=== PATIENT | male | born 2000 | race Caucasian/White ===

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

== ENCOUNTER 2018-08-06 15:53 | Inpatient (IN) | payer MEDICAID ==
[~2018-08-06] VITALS: Ht 177.8 cm; Wt 62.0 kg
[2018-08-06] VITALS (8 sets, daily range): BP systolic 98–158; BP diastolic 43–84; BMI 18.6
--- NOTE | ~2018-08-06 | MORECARE ---
CASE MANAGEMENT DISCHARGE SUMMARY PATIENT: DARVIN WYLIE UNIT: [id number] ADM DATE: 08/06/18 AGE: 18 : [birth year] SEX: M ROOM/BED: D.2227 AUTHOR: YARITZA,DOC PHYSICIAN: REFERRING PHYSICIAN: ARGENIS KEITH MD DATE OF SERVICE: 08/10/18 Discharge Plan Patient Name: DARVIN WYLIE [facility] [facility] 2000 Planned Disposition: Home Anticipated Discharge Date: Discharge Date: 08/09/2018 Expected LOS: Initial Reviewer: [email or web address] Initial Review Date: 08/06/2018 Generated: 08/10/18 5:35 pm Comments DCP- Discharge Planning Updated by [email or web address]: June Malcolm on 08/09/18 3:[address] RESOURCES: [address] PHONE # [phone] PHONE # [phone] MED DATA- MEDICAID APPLICATION F/U- [facility] OUTSOURCED - [phone] DCP- Discharge Planning Updated by [email or web address]: June Malcolm on 08/09/18 1:[address] LATE ENTRY 1030 TC TO [employer] AND LEFT VM MESSAGE FOR TAWNYA REGARDING MEDICAID PENDING STATUS. AWAIT CB. MARK MET WITH THE PATIENT AT THE BEDSIDE THIS AM. HE LIVES WITH HIS MOTHER AND GIRLFRIEND AT MOTHER'S HOME. NO STAIRS TO ENTER THE HOME. 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 HE DOES NOT HAVE A PCP. PHARMACY -[facility] . HE HAD NOT BEEN HOSPITALIZED IN THE LAST 30 DAYS. HAS A GLUCOMETER AND STRIPS THAT WERE HIS GIRLFRIENDS MOTHER. NO OTHER DME. NO COMMUNITYN OR HOME HEALTH SERVICES. MARK DISCUSSED PATIENT FOLLOWING UP WITH [facility] FOR PCP LISTING. MARK SPOKE WITH TAWNYA IN [place] REGARDING MEDICAID. SHE STATES IT IS PENDING. THERE IS AN OPTION TO NOTE IF PATIENT UNABLE TO RECEIVE THE NECESSARY DOCUMENTATION FROM EMPLOYER. HIS APPLICATION IS IN PROGRESS. HE WILL BE PROVIDED WITH SOME OF THE INSULIN HE IS PRESENTLY UTILIZING. CM ADVISED CONTACT INFORMATION IS CORRECT FOR TAWNYA IN MED DATA. CM WILL PROVIDE CONTACT PHONE NUMBER FOR F/U WITH MED ASSIST, [facility] POLLOCK AND [facility]. CM AND PRIMARY NURSE, VIOLETTA , HAVE DISCUSSED THE CASE. SHE WILL ALSO PROVIDE SOME INSULIN SYRINGES PATIENT STATED HE HAD NONE. DCPIA - Discharge Planning Initial Assessment Updated by [email or web address]: June Malcolm on 08/09/18 1:49 pm * Is the patient Alert and Oriented? Yes * How many steps to enter\\exit or inside your home? NONE * PCP NO PCP. WILL BE LOOKING FOR NEW PCP * [facility]acy [facility] [address] * Preadmission Environment Home with Family * ADLs Independent * Equipment Glucometer * Other Equipment DENIES ANY ADDITIONAL DME * List name and contact numbers for known caregivers / representatives who currently or will assist patient after discharge: LULU WYLIE [phone] * Verbal permission to speak to the caregivers and representatives has been obtained from the patient. No * Community resources currently utilized None * Please name any agencies selected above. N/A * Additional services required to return to the preadmission environment? Yes * Can the patient safely return to the preadmission environment? Yes * Has this patient been hospitalized within the prior 30 days at any hospital? No Last DP export: 08/09/18 3:09 Patient Name: DARVIN WYLIE Page [id number] at 1635 All edits/amendments must be made on the electronic document DICTATION DATE: 08/10/18 163 BLOOD BANK CALENDAR CONTROL CLERK: PERI 08/10/18 1635 RPT#: [id number] DC DATE:08/09/18 STATUS: DIS IN [facility] [address] [place] [address] END OF REPORT
--- NOTE | ~2018-08-06 | MORECARE ---
CASE MANAGEMENT DISCHARGE SUMMARY PATIENT: DARVIN WYLIE UNIT: [id number] ADM DATE: 08/06/18 AGE: 18 : [birth year] SEX: M ROOM/BED: D.2227 AUTHOR: YARITZA,DOC PHYSICIAN: REFERRING PHYSICIAN: ARGENIS KEITH MD DATE OF SERVICE: 08/09/18 Discharge Plan Patient Name: DARVIN WYLIE Facility: [facility]:[place] : 2000 Planned Disposition: Home Anticipated Discharge Date: Discharge Date: Expected LOS: Initial Reviewer: [email or web address] Initial Review Date: 08/06/2018 Generated: 08/09/18 3:18 pm Comments DCP- Discharge Planning Updated by [email or web address]: June Malcolm on 08/09/18 1:[address] LATE ENTRY 1030 TC TO [employer] AND LEFT VM MESSAGE FOR TAWNYA REGARDING MEDICAID PENDING STATUS. AWAIT CB. MARK MET WITH THE PATIENT AT THE BEDSIDE THIS AM. HE LIVES WITH HIS MOTHER AND GIRLFRIEND AT MOTHER'S HOME. NO STAIRS TO ENTER THE HOME. 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 HE DOES NOT HAVE A PCP. PHARMACY -[facility] . HE HAD NOT BEEN HOSPITALIZED IN THE LAST 30 DAYS. HAS A GLUCOMETER AND STRIPS THAT WERE HIS GIRLFRIENDS MOTHER. NO OTHER DME. NO [facility] OR HOME HEALTH SERVICES. MARK DISCUSSED PATIENT FOLLOWING UP WITH [facility] FOR PCP LISTING. MARK SPOKE WITH TAWNYA IN [place] [employer] REGARDING MEDICAID. SHE STATES IT IS PENDING. THERE IS AN OPTION TO NOTE IF PATIENT UNABLE TO RECEIVE THE NECESSARY DOCUMENTATION FROM [employer]PL[employer]. HIS APPLICATION IS IN PROGRESS. HE WILL BE PROVIDED WITH SOME OF THE INSULIN HE IS PRESENTLY UTILIZING. CM ADVISED CONTACT INFORMATION IS CORRECT FOR TAWNYA IN [employer] [employer]. CM WILL PROVIDE CONTACT PHONE NUMBER FOR F/U WITH MED ASSIST, [facility] AND [facility]. MARK AND PRIMARY NURSE, VIOLETTA , HAVE DISCUSSED THE CASE. SHE WILL ALSO PROVIDE SOME INSULIN SYRINGES PATIENT STATED HE HAD NONE. DCPIA - Discharge Planning Initial Assessment Updated by [email or web address]: June Malcolm on 08/09/18 1:49 pm * Is the patient Alert and Oriented? Yes * How many steps to enter\\exit or inside your home? NONE * PCP NO PCP. WILL BE LOOKING FOR NEW PCP * [facility]acy [facility] [address] * Preadmission Environment Home with Family * ADLs Independent * Equipment Glucometer * Other Equipment DENIES ANY ADDITIONAL DME * List name and contact numbers for known caregivers / representatives who currently or will assist patient after discharge: LULU WYLIE [phone] * Verbal permission to speak to the caregivers and representatives has been obtained from the patient. No * Community resources currently utilized None * Please name any agencies selected above. N/A * Additional services required to return to the preadmission environment? Yes * Can the patient safely return to the preadmission environment? Yes * Has this patient been hospitalized within the prior 30 days at any hospital? No Last DP export: 08/09/18 12:53 Patient Name: DARVIN WYLIE Page [id number] at 1418 All edits/amendments must be made on the electronic document DICTATION DATE: 08/09/181416 INTERNATIONAL PROJECT MANAGER: PERI 08/09/181416 RPT#: [id number] DC DATE: STATUS: ADM IN [facility] [address] [place] [address] END OF REPORT
--- NOTE | ~2018-08-06 | MORECARE ---
CASE MANAGEMENT DISCHARGE SUMMARY PATIENT: DARVIN WYLIE UNIT: [id number] ADM DATE: 08/06/18 AGE: 18 : [birth year] SEX: M ROOM/BED: D.2227 AUTHOR: TESSA VIGIL PHYSICIAN: REFERRING PHYSICIAN: ARGENIS KEITH MD DATE OF SERVICE: 08/09/18 Discharge Plan Patient Name: DARVIN WYLIE [facility] [facility] 2000 Planned Disposition: Home Anticipated Discharge Date: Discharge Date: Expected LOS: Initial Reviewer: [email or web address] Initial Review Date: 08/06/2018 Generated: 08/09/18 2:53 pm DCPIA - Discharge Planning Initial Assessment Updated by [email or web address]: June Malcolm on 08/09/18 1:49 pm * Is the patient Alert and Oriented? Yes * How many steps to enter\exit or inside your home? NONE * PCP NO PCP. WILL BE LOOKING FOR NEW PCP * [facility] * Preadmission Environment Home with Family * ADLs Independent * Equipment Glucometer * Other Equipment DENIES ANY ADDITIONAL DME * List name and contact numbers for known caregivers / representatives who currently or will assist patient after discharge: LULU WYLIE [phone] * Verbal permission to speak to the caregivers and representatives has been obtained from the patient. No * Community resources currently utilized None * Please name any agencies selected above. N/A * Additional services required to return to the preadmission environment? Yes * Can the patient safely return to the preadmission environment? Yes * Has this patient been hospitalized within the prior 30 days at any hospital? No Last DP export: 08/09/18 12:46 Patient Name: DARVIN WYLIE Page 02145 at 1353 All edits/amendments must be made on the electronic document DICTATION DATE: 08/09/18 1353 LINING IRONER: PEIR 08/09/18 1353 RPT#: [id number] DC DATE: STATUS: ADM IN [facility] [address] [place] [address] END OF REPORT
--- NOTE | ~2018-08-06 | MORECARE ---
CASE MANAGEMENT DISCHARGE SUMMARY PATIENT: DARVIN WYLIE UNIT: [id number] ADM DATE: 08/06/18 AGE: 18 : [birth year] SEX: M ROOM/BED: D.2227 AUTHOR: YARITZA,DOC PHYSICIAN: REFERRING PHYSICIAN: ARGENIS KEITH MD DATE OF SERVICE: 08/09/18 Discharge Plan Patient Name: DARVIN WYLIE [facility] [facility] 2000 Planned Disposition: Home Anticipated Discharge Date: Discharge Date: Expected LOS: Initial Reviewer: [email or web address] Initial Review Date: 08/06/2018 Generated: 08/09/18 5:09 pm Comments DCP- Discharge Planning Updated by [email or web address]: June Malcolm on 08/09/18 3:[address] RESOURCES: [address] PHONE # [phone] PHONE # [phone] MED DATA- MEDICAID APPLICATION F/U- [facility] OUTSOURCED - [phone] DCP- Discharge Planning Updated by [id number]: June Malcolm on 08/09/18 1:[address] LATE ENTRY 1030 TC TO [employer] AND LEFT MESSAGE FOR TAWNYA REGARDING MEDICAID PENDING STATUS. AWAIT CB. MARK MET WITH THE PATIENT AT THE BEDSIDE THIS AM. HE LIVES WITH HIS MOTHER AND GIRLFRIEND AT MOTHER'S HOME. NO STAIRS TO ENTER THE HOME. 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 HE DOES NOT HAVE A PCP. PHARMACY -[facility] ON [facility] . HE HAD NOT BEEN HOSPITALIZED IN THE LAST 30 DAYS. HAS A GLUCOMETER AND STRIPS THAT WERE HIS GIRLFRIENDS MOTHER. NO OTHER DME. NO COMMUNITYN OR HOME HEALTH SERVICES. MARK DISCUSSED PATIENT FOLLOWING UP WITH [facility] FOR PCP LISTING. MARK SPOKE WITH TAWNYA IN [employer] REGARDING MEDICAID. SHE STATES IT IS PENDING. THERE IS AN OPTION TO NOTE IF PATIENT UNABLE TO RECEIVE THE NECESSARY DOCUMENTATION FROM EMPLOYER. HIS APPLICATION IS IN PROGRESS. HE WILL BE PROVIDED WITH SOME OF THE INSULIN HE IS PRESENTLY UTILIZING. CM ADVISED CONTACT INFORMATION IS CORRECT FOR TAWNYA IN MED DATA. CM WILL PROVIDE CONTACT PHONE NUMBER FOR F/U WITH MED ASSIST, [facility] AND [facility]. CM AND PRIMARY NURSE, VIOLETTA , HAVE DISCUSSED THE CASE. SHE WILL ALSO PROVIDE SOME INSULIN SYRINGES PATIENT STATED HE HAD NONE. DCPIA - Discharge Planning Initial Assessment Updated by [email or web address]: June Malcolm on 08/09/18 1:49 pm * Is the patient Alert and Oriented? Yes * How many steps to enter\\exit or inside your home? NONE * PCP NO PCP. WILL BE LOOKING FOR NEW PCP * [facility] [address] * Preadmission Environment Home with Family * ADLs Independent * Equipment Glucometer * Other Equipment DENIES ANY ADDITIONAL DME * List name and contact numbers for known caregivers / representatives who currently or will assist patient after discharge: LULU WYLIE [phone] * Verbal permission to speak to the caregivers and representatives has been obtained from the patient. No * Community resources currently utilized None * Please name any agencies selected above. N/A * Additional services required to return to the preadmission environment? Yes * Can the patient safely return to the preadmission environment? Yes * Has this patient been hospitalized within the prior 30 days at any hospital? No Last DP export: 08/09/18 1:18 Patient Name: DARVIN WYLIE Page [phone] at 1609 All edits/amendments must be made on the electronic document DICTATION DATE: 08/09/181607 EXERCISE EQUIPMENT REPAIR TECHNICIAN: PERI 08/09/181607 RPT#: [id number] DC DATE: STATUS: ADM IN [facility] [address] [place] [address] END OF REPORT
--- NOTE | ~2018-08-06 | MORECARE ---
CASE MANAGEMENT DISCHARGE SUMMARY PATIENT: DARVIN WYLIE UNIT: [id number] ADM DATE: 08/06/18 AGE: 18 : 98 SEX: M ROOM/BED: D.2227 AUTHOR: TESSA VIGIL PHYSICIAN: REFERRING PHYSICIAN: ARGENIS KEITH MD DATE OF SERVICE: 08/09/18 Discharge Plan Patient Name: DARVIN WYLIE [facility] [facility] 2000 Planned Disposition: Home Anticipated Discharge Date: Discharge Date: Expected LOS: Initial Reviewer: [email or web address] Initial Review Date: 08/06/2018 Generated: 08/09/18 2:46 pm Patient Name: DARVIN WYLIE Page [phone] at 1346 All edits/amendments must be made on the electronic document DICTATION DATE: 08/09/18 1345 SUPERVISOR BUFFING AND PASTING: PERI 08/09/18 1345 RPT#: [id number] DC DATE: STATUS: ADM IN [facility] [address] [place] [address] END OF REPORT
[~2018-08-06 15:53] MED LIST changes: +COLACE100 MG PO; +DOXYCYCLINE HY100 M2 PO; +HYDROCODON-ACE1 EAC7 PO
[2018-08-06] MEDS ORDERED: NOVOLOG100 UNIT/1 SQ (16:02)
[2018-08-06 16:39] LABS: APPEARANCE CLEAR (CLEAR); COLOR YELLOW (YELLOW)
[2018-08-06 16:40] LABS: BACTERIA FEW /hpf (NONE SEEN); BILIRUBIN NEGATIVE (NEGATIVE); EPITHELIAL CELLS NSEEN /hpf (0-5); GLUCOSE 1000 mg/dL (NEGATIVE); KETONE MODERATE mg/dL (NEGATIVE); NITRITE NEGATIVE (NEGATIVE); PROTEIN 1+ mg/dL (NEGATIVE); RED CELLS - URINE RARE /hpf (0-5); UROBILINOGEN NORMAL (NORMAL); WHITE CELLS - URINE NSEEN /hpf (0-5)
[2018-08-06 16:41] LABS: UDS - AMPHET NEGATIVE QUAL (NEGATIVE); UDS - BARB NEGATIVE QUAL (NEGATIVE); UDS - BENZO NEGATIVE QUAL (NEGATIVE); UDS - COCAINE NEGATIVE QUAL (NEGATIVE); UDS - OPIATE NEGATIVE QUAL (NEGATIVE); UDS - PCP NEGATIVE QUAL (NEGATIVE); UDS - THC NEGATIVE QUAL (NEGATIVE)
[2018-08-06 16:42] LABS: HEMATOCRIT 44.8 % (42.0-54.0); HEMOGLOBIN 16.2 g/dL (13.5-17.5); MCH 31.8 pg (26.0-34.0); MCHC 36.2 g/dL (31.0-37.0); MEAN PLATELET VOLUME 11.2 fL (7.4-10.4); PLATELET COUNT 262 10x3/uL (130-400); RBC 5.09 10x6/uL (4.20-6.10); RDW 13.6 % (11.5-14.5); WBC 28.2 10x3/uL (4.8-10.8)
[2018-08-06 16:49] LABS: KETONE - SERUM SMALL mg/dL (NEGATIVE)
[2018-08-06 16:57] LABS: LYMPHOCYTES 12 % (15-50); MONOCYTES 5 % (2-11); NEUTROPHILS 83 % (40-80); PLATELET ESTIMATE NORMAL; PLATELET MORPHOLOGY NORMAL PLT MORPH
[2018-08-06 17:01] LABS: ALBUMIN 3.8 g/dL (3.4-5.0); ALKALINE PHOSPHATASE 83 U/L (46-116); ALT (SGPT) 13 U/L (10-68); BILIRUBIN - TOTAL 0.54 mg/dL (0.2-1.3); CALCIUM 8.4 mg/dL (8.5-10.1); CHLORIDE - SERUM 99 mmol/L (98-107); CREATININE - SERUM 1.6 mg/dL (0.6-1.3); LIPASE 61 U/L (73-393); MAGNESIUM - SERUM 1.6 mg/dL (1.8-2.4); POTASSIUM - SERUM 4.1 mmol/L (3.5-5.1); PROTEIN - SERUM 7.2 g/dL (6.4-8.2); SODIUM 136 mmol/L (136-145); UREA NITROGEN 12 mg/dL (7-18); eGFR NON AFRICAN AMERICAN 59 mL/min (90-120)
[2018-08-06 17:07] LABS: CALC OSMOLALITY 295 mosm/kg (275-300); CARBON DIOXIDE 5.7 mmol/L (21.0-32.0); GLUCOSE 534 mg/dL (74-106)
[2018-08-06 23:47] LABS: CALC OSMOLALITY 276 mosm/kg (275-300); CALCIUM 8.1 mg/dL (8.5-10.1); CARBON DIOXIDE 10.5 mmol/L (21.0-32.0); CHLORIDE - SERUM 105 mmol/L (98-107); CREATININE - SERUM 1.2 mg/dL (0.6-1.3); GLUCOSE 135 mg/dL (74-106); MAGNESIUM - SERUM 1.4 mg/dL (1.8-2.4); POTASSIUM - SERUM 3.5 mmol/L (3.5-5.1); SODIUM 138 mmol/L (136-145); UREA NITROGEN 9 mg/dL (7-18); eGFR NON AFRICAN AMERICAN 82 mL/min (90-120)
[2018-08-06 23:48] LABS: KETONE - SERUM SMALL mg/dL (NEGATIVE)
[2018-08-07] VITALS (26 sets, daily range): BP systolic 87–116; BP diastolic 44–87; Ht 177.8 cm; Wt 62.0 kg
[2018-08-07 04:04] LABS: BASOPHILS 0.1 % (0-2); EOSINOPHILS 0 % (0-7); IMMATURE GRANULOCYTES 0.5 % (0-5); LYMPHOCYTES 16.2 % (15-50); MCH 30.9 pg (26.0-34.0); MCHC 36.2 g/dL (31.0-37.0); MEAN PLATELET VOLUME 10.6 fL (7.4-10.4); MONOCYTES 6.3 % (2-11); NEUTROPHILS 76.9 % (40-80); RBC 4.18 10x6/uL (4.20-6.10); RDW 13.8 % (11.5-14.5)
[2018-08-07 04:14] LABS: HEMATOCRIT 35.6 % (42.0-54.0); HEMOGLOBIN 12.9 g/dL (13.5-17.5); MCV 85.2 fL (80.0-100.0); PLATELET COUNT 158 10x3/uL (130-400); WBC 14.7 10x3/uL (4.8-10.8)
[2018-08-07 04:22] LABS: CALCIUM 8.3 mg/dL (8.5-10.1); CHLORIDE - SERUM 106 mmol/L (98-107); CREATININE - SERUM 1.2 mg/dL (0.6-1.3); POTASSIUM - SERUM 3.9 mmol/L (3.5-5.1); SODIUM 138 mmol/L (136-145); UREA NITROGEN 7 mg/dL (7-18); eGFR NON AFRICAN AMERICAN 82 mL/min (90-120)
[2018-08-07 04:25] LABS: CALC OSMOLALITY 279 mosm/kg (275-300); CARBON DIOXIDE 15.5 mmol/L (21.0-32.0); GLUCOSE 198 mg/dL (74-106)
[2018-08-07 12:21] LABS: CALC OSMOLALITY 278 mosm/kg (275-300); CALCIUM 8.5 mg/dL (8.5-10.1); CARBON DIOXIDE 19.8 mmol/L (21.0-32.0); CHLORIDE - SERUM 105 mmol/L (98-107); CREATININE - SERUM 1.1 mg/dL (0.6-1.3); GLUCOSE 158 mg/dL (74-106); POTASSIUM - SERUM 3.2 mmol/L (3.5-5.1); SODIUM 139 mmol/L (136-145); UREA NITROGEN 8 mg/dL (7-18); eGFR NON AFRICAN AMERICAN > 90 mL/min (90-120)
[2018-08-07 16:00] LABS: CALC OSMOLALITY 284 mosm/kg (275-300); CALCIUM 8.2 mg/dL (8.5-10.1); CARBON DIOXIDE 16.8 mmol/L (21.0-32.0); CHLORIDE - SERUM 105 mmol/L (98-107); CREATININE - SERUM 1.1 mg/dL (0.6-1.3); POTASSIUM - SERUM 3.2 mmol/L (3.5-5.1); SODIUM 137 mmol/L (136-145); UREA NITROGEN 6 mg/dL (7-18); eGFR NON AFRICAN AMERICAN > 90 mL/min (90-120)
[2018-08-07 16:05] LABS: GLUCOSE 332 mg/dL (74-106)
[2018-08-07 20:15] LABS: CALCIUM 8.2 mg/dL (8.5-10.1); CHLORIDE - SERUM 106 mmol/L (98-107); POTASSIUM - SERUM 3.1 mmol/L (3.5-5.1); SODIUM 139 mmol/L (136-145); UREA NITROGEN 5 mg/dL (7-18); eGFR NON AFRICAN AMERICAN > 90 mL/min (90-120)
[2018-08-07 20:16] LABS: CALC OSMOLALITY 282 mosm/kg (275-300); CARBON DIOXIDE 23.7 mmol/L (21.0-32.0); GLUCOSE 238 mg/dL (74-106)
[2018-08-08] VITALS (15 sets, daily range): BP systolic 93–121; BP diastolic 56–80
[2018-08-08 04:05] LABS: BASOPHILS 0.5 % (0-2); HEMATOCRIT 32.5 % (42.0-54.0); HEMOGLOBIN 12.1 g/dL (13.5-17.5); LYMPHOCYTES 39.7 % (15-50); MCH 31.3 pg (26.0-34.0); MCHC 37.2 g/dL (31.0-37.0); MCV 84.2 fL (80.0-100.0); MEAN PLATELET VOLUME 10.7 fL (7.4-10.4); MONOCYTES 5.9 % (2-11); NEUTROPHILS 52.9 % (40-80); RBC 3.86 10x6/uL (4.20-6.10); RDW 13.7 % (11.5-14.5)
[2018-08-08 04:06] LABS: PLATELET COUNT 103 10x3/uL (130-400); WBC 3.9 10x3/uL (4.8-10.8)
[2018-08-08 04:17] LABS: ALKALINE PHOSPHATASE 53 U/L (46-116); ALT (SGPT) 12 U/L (10-68); BILIRUBIN - TOTAL 0.34 mg/dL (0.2-1.3); CALCIUM 8.2 mg/dL (8.5-10.1); CARBON DIOXIDE 24.2 mmol/L (21.0-32.0); CHLORIDE - SERUM 105 mmol/L (98-107); CREATININE - SERUM 0.8 mg/dL (0.6-1.3); POTASSIUM - SERUM 3.4 mmol/L (3.5-5.1); SODIUM 140 mmol/L (136-145); UREA NITROGEN 6 mg/dL (7-18); eGFR NON AFRICAN AMERICAN > 90 mL/min (90-120)
[2018-08-08 04:30] LABS: ALBUMIN 2.7 g/dL (3.4-5.0); CALC OSMOLALITY 280 mosm/kg (275-300); GLUCOSE 174 mg/dL (74-106); PROTEIN - SERUM 5.3 g/dL (6.4-8.2)
[2018-08-08 08:41] LABS: CALC OSMOLALITY 283 mosm/kg (275-300); CALCIUM 8.3 mg/dL (8.5-10.1); CHLORIDE - SERUM 103 mmol/L (98-107); CREATININE - SERUM 0.9 mg/dL (0.6-1.3); POTASSIUM - SERUM 3.6 mmol/L (3.5-5.1); SODIUM 139 mmol/L (136-145); UREA NITROGEN 6 mg/dL (7-18); eGFR NON AFRICAN AMERICAN > 90 mL/min (90-120)
[2018-08-08 08:42] LABS: GLUCOSE 251 mg/dL (74-106)
[2018-08-08 12:22] LABS: CALC OSMOLALITY 283 mosm/kg (275-300); CALCIUM 8.1 mg/dL (8.5-10.1); CARBON DIOXIDE 28.6 mmol/L (21.0-32.0); CHLORIDE - SERUM 102 mmol/L (98-107); CREATININE - SERUM 0.8 mg/dL (0.6-1.3); GLUCOSE 302 mg/dL (74-106); POTASSIUM - SERUM 3.5 mmol/L (3.5-5.1); SODIUM 138 mmol/L (136-145); UREA NITROGEN 5 mg/dL (7-18); eGFR NON AFRICAN AMERICAN > 90 mL/min (90-120)
[2018-08-09] VITALS: BP 114/70
[2018-08-09 04:00] VITALS: BP 108/76
[2018-08-09 08:34] VITALS: BP 110/72
[2018-08-09 10:22] LABS: CALC OSMOLALITY 289 mosm/kg (275-300); CALCIUM 8.9 mg/dL (8.5-10.1); CARBON DIOXIDE 33.2 mmol/L (21.0-32.0); CHLORIDE - SERUM 102 mmol/L (98-107); CREATININE - SERUM 0.7 mg/dL (0.6-1.3); GLUCOSE 311 mg/dL (74-106); POTASSIUM - SERUM 3.4 mmol/L (3.5-5.1); SODIUM 140 mmol/L (136-145); eGFR NON AFRICAN AMERICAN > 90 mL/min (90-120)
[2018-08-09 10:31] LABS: UREA NITROGEN 10 mg/dL (7-18)
== END 2018-08-09 16:16 | disposition home or self-care (01) | DRG 639 ==
LOC: D.ER 15:53 → D.MS 19:35 → D.EDHOLD 19:35 → D.ICU 20:59 → D.MS 08-08 18:18
PROVIDERS: Emergency Medicine; Internal Medicine Nephrology
DX: E10.10 Type 1 diabetes mellitus with ketoacidosis without coma (principal); Z79.4 Long term (current) use of insulin; R00.0 Tachycardia, unspecified; Z87.891 Personal history of nicotine dependence

== ENCOUNTER 2019-08-27 02:36 | Inpatient (IN) | payer MEDICAID ==
[~2019-08-27] VITALS: Ht 177.8 cm; Wt 77.6 kg
[2019-08-27] VITALS (16 sets, daily range): BP systolic 77–122; BP diastolic 50–82; Ht 177.8 cm; Wt 77.6 kg
[~2019-08-27 02:36] MED LIST changes: +NOVOLOG100 UNIT/1 SQ
[2019-08-27 02:50] LABS: BASOPHILS 0.5 % (0-2); EOSINOPHILS 1.3 % (0-7); HEMATOCRIT 43.4 % (42.0-54.0); HEMOGLOBIN 15.4 g/dL (13.5-17.5); IMMATURE GRANULOCYTES 0.2 % (0-5); LYMPHOCYTES 42.5 % (15-50); MCH 31.5 pg (26.0-34.0); MCHC 35.5 g/dL (31.0-37.0); MCV 88.8 fL (80.0-100.0); MEAN PLATELET VOLUME 10.7 fL (7.4-10.4); MONOCYTES 5.4 % (2-11); NEUTROPHILS 50.1 % (40-80); RBC 4.89 10x6/uL (4.20-6.10); RDW 12.7 % (11.5-14.5); WBC 6.3 10x3/uL (4.8-10.8)
[2019-08-27 02:59] LABS: PLATELET COUNT 172 10x3/uL (130-400)
[2019-08-27 03:09] LABS: ALBUMIN 3.4 g/dL (3.4-5.0); ALKALINE PHOSPHATASE 66 U/L (46-116); ALT (SGPT) 28 U/L (10-68); BILIRUBIN - TOTAL 0.25 mg/dL (0.2-1.3); CALCIUM 8.3 mg/dL (8.5-10.1); CARBON DIOXIDE 24.1 mmol/L (21.0-32.0); CHLORIDE - SERUM 105 mmol/L (98-107); CREATININE - SERUM 0.7 mg/dL (0.6-1.3); MAGNESIUM - SERUM 1.7 mg/dL (1.8-2.4); PROTEIN - SERUM 6.8 g/dL (6.4-8.2); SODIUM 145 mmol/L (136-145); UREA NITROGEN 10 mg/dL (7-18); eGFR NON AFRICAN AMERICAN > 90 mL/min (90-120)
[2019-08-27 03:11] LABS: CALC OSMOLALITY 292 mosm/kg (275-300); GLUCOSE 195 mg/dL (74-106); POTASSIUM - SERUM 2.9 mmol/L (3.5-5.1)
[2019-08-27 03:22] LABS: KETONE - SERUM SMALL mg/dL (NEGATIVE)
--- NOTE | 2019-08-27 04:22 | NUR ---
PATIENT ARRIVED TO UNIT FROM ER, ACCOMPANIED BY LINKER UP. ADMISSION ASSESSMENT COMPLETED, SEE FLOW SHEET FOR DETAILS. PATIENT STATES "I TOOK INSULIN BEFORE COMING HERE" UNKNOWN HOW MANY UNITS HE TOOK, MOTHER STATES "HE GAVE HIMSELF SOME AND THOUGHT HE DID NOT GET IT IN SO HE GAVE HIMSELF SOME MORE" WILL CONTINUE TO MONITOR. DENIES PAIN OR NEEDS. CALL LIGHT WITHIN REACH. 0442 CALLED [facility], INFORMED HIM OF FSBS CHECKS, PER HIS ORDERS HOLD INSULIN DRIP AND GIVE 25 MLS OF D50.
[2019-08-27] MEDS ORDERED: LEVEMIR IN100 UNITS/ (04:32)
--- NOTE | 2019-08-27 07:15 | NUR ---
REPORT RECEIVED. PT IS RESTING QUIETLY IN BED. HE HAS AN IV IN HIS LEFT HAND WITH D5NS INFUSING AT 125ML/HR. CURRENTLY REPLACING POTASSIUM AT THIS TIME. VSS. NO COMPLAINTS OR NEEDS AT THIS TIME.
[2019-08-27 08:11] LABS: CALC OSMOLALITY 292 mosm/kg (275-300); CALCIUM 7.7 mg/dL (8.5-10.1); CARBON DIOXIDE 29.1 mmol/L (21.0-32.0); CHLORIDE - SERUM 107 mmol/L (98-107); GLUCOSE 217 mg/dL (74-106); SODIUM 144 mmol/L (136-145); UREA NITROGEN 10 mg/dL (7-18)
[2019-08-27 08:12] LABS: CREATININE - SERUM 0.5 mg/dL (0.6-1.3); eGFR NON AFRICAN AMERICAN > 90 mL/min (90-120)
--- NOTE | 2019-08-27 09:05 | NUR ---
PT NO LONGER NPO. GAVE WATER AND PROTONIX. POTASSIUM STILL BEING REPLACED. PT HAS NO COMPLAINTS OR NEEDS AT THIS TIME. VSS.
[2019-08-27 11:47] LABS: CALC OSMOLALITY 292 mosm/kg (275-300); CALCIUM 7.6 mg/dL (8.5-10.1); CHLORIDE - SERUM 105 mmol/L (98-107); CREATININE - SERUM 0.6 mg/dL (0.6-1.3); POTASSIUM - SERUM 4.2 mmol/L (3.5-5.1); SODIUM 141 mmol/L (136-145); UREA NITROGEN 9 mg/dL (7-18); eGFR NON AFRICAN AMERICAN > 90 mL/min (90-120)
[2019-08-27 11:48] LABS: GLUCOSE 334 mg/dL (74-106)
--- NOTE | 2019-08-27 12:18 | NUR ---
GOT ORDER FOR INTERMEDIATE SLIDING SCALE FOR PT. 1ST DOSE 10 UNITS FOR A BLOOD SUGAR OF 290. PT EATING LUNCH. VOIDED 1000ML. NO COMPLAINTS OR NEEDS AT THIS TIME. VSS.
--- NOTE | 2019-08-27 14:15 | NUR ---
PT RESTING QUIETLY. VSS. NO COMPLAINTS OR NEEDS AT THIS TIME. WLIL CONTINUE TO MONITOR.
[2019-08-27 15:31] LABS: CALC OSMOLALITY 291 mosm/kg (275-300); CALCIUM 8.2 mg/dL (8.5-10.1); CHLORIDE - SERUM 107 mmol/L (98-107); CREATININE - SERUM 0.7 mg/dL (0.6-1.3); POTASSIUM - SERUM 4.1 mmol/L (3.5-5.1); SODIUM 143 mmol/L (136-145); UREA NITROGEN 9 mg/dL (7-18); eGFR NON AFRICAN AMERICAN > 90 mL/min (90-120)
[2019-08-27 15:35] LABS: GLUCOSE 237 mg/dL (74-106)
--- NOTE | 2019-08-27 16:15 | NUR ---
PT RESTING QUIETLY. VSS.
[2019-08-28] VITALS: BP 113/73
[2019-08-28 04:00] VITALS: BP 98/60
[2019-08-28 06:42] LABS: BASOPHILS 0.2 % (0-2); EOSINOPHILS 2.2 % (0-7); HEMATOCRIT 40.5 % (42.0-54.0); HEMOGLOBIN 13.7 g/dL (13.5-17.5); IMMATURE GRANULOCYTES 0.2 % (0-5); LYMPHOCYTES 45.2 % (15-50); MCH 30.9 pg (26.0-34.0); MCHC 33.8 g/dL (31.0-37.0); MEAN PLATELET VOLUME 11.8 fL (7.4-10.4); MONOCYTES 6.1 % (2-11); NEUTROPHILS 46.1 % (40-80); RBC 4.44 10x6/uL (4.20-6.10); RDW 13.1 % (11.5-14.5); WBC 5.1 10x3/uL (4.8-10.8)
[2019-08-28 06:44] LABS: MCV 91.2 fL (80.0-100.0); PLATELET COUNT 121 10x3/uL (130-400)
[2019-08-28 07:13] LABS: ALBUMIN 2.8 g/dL (3.4-5.0); ALKALINE PHOSPHATASE 61 U/L (46-116); ALT (SGPT) 31 U/L (10-68); BILIRUBIN - TOTAL 0.32 mg/dL (0.2-1.3); CALCIUM 7.8 mg/dL (8.5-10.1); CHLORIDE - SERUM 106 mmol/L (98-107); CREATININE - SERUM 0.6 mg/dL (0.6-1.3); POTASSIUM - SERUM 3.9 mmol/L (3.5-5.1); PROTEIN - SERUM 5.5 g/dL (6.4-8.2); SODIUM 140 mmol/L (136-145); UREA NITROGEN 9 mg/dL (7-18); eGFR NON AFRICAN AMERICAN > 90 mL/min (90-120)
[2019-08-28 07:19] LABS: CALC OSMOLALITY 289 mosm/kg (275-300); CARBON DIOXIDE 22.6 mmol/L (21.0-32.0); GLUCOSE 309 mg/dL (74-106)
--- NOTE | 2019-08-28 08:25 | NUR ---
AWAKE AND ALERT. ORIENTED X3. NO C/O AT THIS TIME. LUNGS ARE CLEAR BILATERALLY, NO COUGH NOTED. SKIN IS INTACT WTIHOUT REDNESS. IV TO LEFT HAND IS PATENT WITHOUT REDNESS AT INSERTION SITE. DENIES NEEDS. BREAKFAST SERVED IN ROOM.
--- NOTE | 2019-08-28 10:00 | NUR ---
VOIDED CLEAR YELLOW URINE. SPECIMEN SENT TO LAB. DENIES NEEDS.
[2019-08-28 10:56] LABS: APPEARANCE CLEAR (CLEAR); BILIRUBIN NEGATIVE (NEGATIVE); COLOR YELLOW (YELLOW); NITRITE NEGATIVE (NEGATIVE); PROTEIN NEGATIVE (NEGATIVE); SPECIFIC GRAVITY 1.015 (1.005-1.020); UROBILINOGEN NORMAL (NORMAL)
[2019-08-28 11:17] LABS: GLUCOSE 1000 mg/dL (NEGATIVE)
[2019-08-28 11:18] LABS: KETONE MODERATE mg/dL (NEGATIVE)
[2019-08-28] MEDS ORDERED: NOVOLOG100 UNIT/1 SC (14:24)
[2019-08-28 14:27] VITALS: BP 130/85; BP 99/63
--- NOTE | 2019-08-28 15:00 | NUR ---
DISCHARGE ORDERS RECEIVED. UP TO SHOWER PER SELF. DISCHARGE INSTRUCTIONS GIVEN BOTH VERBALLY AND WRITTEN. ALL QUESTIONS ANSWERED. PATIENT VERBALIZED UNDERSTANDING OF SAME. IV TO LEFT HAND D/C WITH CATHETER INTACT. NO NEW PRESCRIPTIONS NEEDED. WAITING ON RIDE TO D/C HOME.
--- NOTE | 2019-08-28 16:04 | NUR ---
DISCHARGED TO HOME AMBULATORY WITH MOM. ALL BELONGINGS WITH PATIENT.
== END 2019-08-28 16:04 | disposition home or self-care (01) | DRG 638 ==
LOC: D.ER 02:36 → D.ICU 03:28 → D.MS 18:38
PROVIDERS: Family Medicine; ADMIT Internal Medicine Nephrology; ATTEND Internal Medicine Nephrology
DX: E10.10 Type 1 diabetes mellitus with ketoacidosis without coma (principal); N17.9 Acute kidney failure, unspecified; E87.2 Acidosis; Z79.4 Long term (current) use of insulin; Z72.0 Tobacco use; E87.6 Hypokalemia; E83.42 Hypomagnesemia

== ENCOUNTER 2019-10-30 03:00 | Emergency (ER) | payer OTHER ==
[~2019-10-30] VITALS: Ht 177.8 cm; Wt 72.7 kg
[~2019-10-30 03:00] MED LIST changes: +LEVEMIR IN100 UNITS/; +NOVOLOG100 UNIT/1 SC
[2019-10-30 03:07] VITALS: Ht 177.8 cm; Wt 72.7 kg
[2019-10-30 03:27] LABS: BASOPHILS 0.3 % (0-2); EOSINOPHILS 0.7 % (0-7); HEMOGLOBIN 15.2 g/dL (13.5-17.5); IMMATURE GRANULOCYTES 0.1 % (0-5); LYMPHOCYTES 25.2 % (15-50); MCH 31.2 pg (26.0-34.0); MCHC 35.3 g/dL (31.0-37.0); MCV 88.3 fL (80.0-100.0); MEAN PLATELET VOLUME 10.6 fL (7.4-10.4); MONOCYTES 5.1 % (2-11); NEUTROPHILS 68.6 % (40-80); RBC 4.87 10x6/uL (4.20-6.10); RDW 12.9 % (11.5-14.5)
[2019-10-30 03:37] LABS: CALC OSMOLALITY 290 mosm/kg (275-300); CALCIUM 8.9 mg/dL (8.5-10.1); CARBON DIOXIDE 25.5 mmol/L (21.0-32.0); CHLORIDE - SERUM 104 mmol/L (98-107); CREATININE - SERUM 0.7 mg/dL (0.6-1.3); POTASSIUM - SERUM 3.1 mmol/L (3.5-5.1); SODIUM 143 mmol/L (136-145); UREA NITROGEN 11 mg/dL (7-18); eGFR NON AFRICAN AMERICAN > 90 mL/min (90-120)
[2019-10-30 03:38] LABS: GLUCOSE 233 mg/dL (74-106); KETONE - SERUM SMALL mg/dL (NEGATIVE)
[2019-10-30 03:42] LABS: ALBUMIN 3.8 g/dL (3.4-5.0); ALKALINE PHOSPHATASE 73 U/L (46-116); ALT (SGPT) 27 U/L (10-68); BILIRUBIN - TOTAL 0.35 mg/dL (0.2-1.3); PROTEIN - SERUM 7.1 g/dL (6.4-8.2)
[2019-10-30 03:46] LABS: PLATELET COUNT 194 10x3/uL (130-400)
[2019-10-30 03:59] LABS: APPEARANCE CLEAR (CLEAR); BILIRUBIN NEGATIVE (NEGATIVE); COLOR YELLOW (YELLOW); GLUCOSE 1000 mg/dL (NEGATIVE); KETONE SMALL mg/dL (NEGATIVE); NITRITE NEGATIVE (NEGATIVE); PROTEIN NEGATIVE (NEGATIVE); UROBILINOGEN NORMAL (NORMAL)
[2019-10-30 05:28] VITALS: BP 126/66
== END 2019-10-30 05:28 | disposition home or self-care (01) ==
LOC: D.ER 03:00
PROVIDERS: Emergency Medicine
DX: R10.9 Unspecified abdominal pain (principal); R73.9 Hyperglycemia, unspecified; E87.6 Hypokalemia; E10.8 Type 1 diabetes mellitus with unspecified complications; Z79.4 Long term (current) use of insulin